=== PATIENT | female | born 1995 | race Caucasian/White ===

== ENCOUNTER 2020-04-28 20:33 | Emergency (ER) | payer OTHER ==
[2020-04-28 21:55] LABS: HEMOGLOBIN 13.3 gm/dl (12.3-15.3); RED BLOOD COUNT 4.81 M/UL (4.00-5.10); WHITE BLOOD COUNT 9.4 K/UL (4.5-11.0)
[2020-04-28 22:06] LABS: BUN/CREATININE RATIO 10 (0-10)
[2020-04-29] MEDS ORDERED: IBUPROFEN600 MG PO (01:12)
[2020-04-29] MEDS ORDERED: CYCLOBENZAPRINE5 MG PO (01:12)
== END 2020-04-29 01:30 | disposition home or self-care (01) ==
LOC: ER1 20:33
PROVIDERS: Emergency Medicine
DX: S80.02XA Contusion of left knee, initial encounter (principal); S80.01XA Contusion of right knee, initial encounter; S10.93XA Contusion of unspecified part of neck, initial encounter; S30.0XXA Contusion of lower back and pelvis, initial encounter; R07.81 Pleurodynia; R10.9 Unspecified abdominal pain; M25.511 Pain in right shoulder; M25.512 Pain in left shoulder; V49.40XA Driver injured in collision with unspecified motor vehicles in traffic accident, initial encounter; Y92.410 Unspecified street and highway as the place of occurrence of the external cause
CPT/HCPCS: 70450; 71045; 71260; 72125; 72128; 72131; 72170; 73110; 73562; 80053; 80307; 81001; 83605; 83690; 84703; 85025; 85610; 85730; 86850; 86900; 86901; 96374; 99284; G0480; J1885; Q9967

== ENCOUNTER → 2020-04-28 | Outpatient (CLI) | payer OTHER ==
[~2020-04-28] MED LIST: CYCLOBENZAPRINE5 MG PO; IBUPROFEN600 MG PO
== END ==
LOC: LAB 20:13
DX: Z02.83 Encounter for blood-alcohol and blood-drug test (principal)
CPT/HCPCS: 36415